=== PATIENT | female | born 1990 | race Caucasian/White ===

== ENCOUNTER 2017-10-13 12:54 | Emergency (ER) | payer MEDICAID ==
[~2017-10-13] VITALS: Ht 170.2 cm; Wt 69.3 kg
[2017-10-13] MEDS ORDERED: PROCHLORPERAZINE 5 MG/ML, 2ML ONE (13:39)
[2017-10-13] MEDS ORDERED: MORPHINE SULFATE 4 MG/ML, 1ML ONE (13:40)
[2017-10-13] MEDS ORDERED: DIPHENHYDRAMINE 50 MG/ML, 1ML ONE (13:40)
[2017-10-13 13:50] LABS: BASOPHILS # (AUTO) 0.02 x10^3/uL (0-0.1); BASOPHILS % (AUTO) 0 % (0-1); EOSINOPHILS # (AUTO) 0.02 x10^3/uL (0-0.4); EOSINOPHILS % (AUTO) 0 % (1-7); LYMPHOCYTES # (AUTO) 1.09 x10^3/uL (1-3.4); LYMPHOCYTES % (AUTO) 17 % (22-44); MD NO; MEAN CORPUSCULAR HEMOGLOBIN 29.1 pg (27.0-34.8); MEAN CORPUSCULAR HGB CONC 33.8 g/dL (32.4-35.8); MEAN CORPUSCULAR VOLUME 86.3 fL (80-100); MEAN PLATELET VOLUME 8.5 fL (7.4-10.4); MONOCYTES # (AUTO) 0.27 x10^3/uL (0.2-0.8); MONOCYTES % (AUTO) 4 % (2-9); NEUTROPHILS # (AUTO) 4.97 x10^3/uL (1.8-6.8); NEUTROPHILS % (AUTO) 78 % (42-75); PLATELET COUNT 257 x10^3/uL (130-400); RED BLOOD COUNT 5.02 x10^6/uL (3.82-5.3); RED CELL DISTRIBUTION WIDTH 13.3 % (9.6-15.2)
[2017-10-13] MEDS ORDERED: MORPHINE SULFATE 4 MG/ML, 1ML IVPush PRN (14:00)
[2017-10-13] MEDS ORDERED: DIPHENHYDRAMINE 50 MG/ML, 1ML IVPush ONE (14:00)
[2017-10-13] MEDS ORDERED: PROCHLORPERAZINE 5 MG/ML, 2ML IVPush ONE (14:00)
[2017-10-13] MEDS ORDERED: SODIUM CHLORIDE FLUSH 10ML SYR IVF ONE (14:00)
[2017-10-13] MEDS ORDERED: SODIUM CHLORIDE 0.9% 1,000ML IVBOLUS ONE (14:00)
[2017-10-13 14:01] LABS: ALANINE AMINOTRANSFERASE 21 U/L (12-78); ALBUMIN 3.9 g/dL (3.4-5.0); ANION GAP 8 mmol/L (5-15); CALCIUM 8.7 mg/dL (8.5-10.1); CHLORIDE 105 mmol/L (98-107)
[2017-10-13 14:06] LABS: ALKALINE PHOSPHATASE 59 U/L (45-117); BILIRUBIN,TOTAL 0.4 mg/dL (0.2-1.0); CREATININE 0.82 mg/dL (0.55-1.02); TOTAL PROTEIN 7.9 g/dL (6.4-8.2)
[2017-10-13 14:51] VITALS: BP 101/63
== END 2017-10-13 14:54 | disposition home or self-care (01) ==
LOC: ED 14:50
DX: R10.84 Generalized abdominal pain (principal); R11.2 Nausea with vomiting, unspecified; R19.7 Diarrhea, unspecified
CPT/HCPCS: 36415; 80053; 83690; 84703; 85025; 96361; 96374; 96375; 99284; J0780; J1200; J7030

== ENCOUNTER 2019-07-06 16:35 | Emergency (ER) | payer MEDICAID ==
[~2019-07-06] VITALS: Ht 170.2 cm; Wt 69.0 kg
--- NOTE | 2019-07-06 17:29 | NUR ---
PT HERE WITH C/O MIGRAINE, GENERALIZED PAIN THROUGHOUT. PT STATES NAUSEA, VOMITTING, AND ABDOMINAL PAIN. 9/10 PAIN, PHOTOPHOBIC. PT DENIES ANY TRAUMA. PT AAO X 4, NAD, ROOM AIR, CALL LIGHT WITHIN REACH. SIDERAIL X [address]
[2019-07-06] MEDS ORDERED: KETOROLAC 30 MG/1 ML IM ONE (17:30)
[2019-07-06] MEDS ORDERED: METOCLOPRAMIDE 5 MG/ML, 2ML IM ONE (17:30)
[2019-07-06] MEDS ORDERED: KETOROLAC 30 MG/1 ML ONE (17:35)
[2019-07-06] MEDS ORDERED: METOCLOPRAMIDE 5 MG/ML, 2ML ONE (17:35)
[2019-07-06 17:43] LABS: BASOPHILS # (AUTO) 0.09 x10^3/uL (0-0.1); BASOPHILS % (AUTO) 1 % (0-1); EOSINOPHILS # (AUTO) 0.14 x10^3/uL (0-0.4); EOSINOPHILS % (AUTO) 2 % (1-7); LYMPHOCYTES # (AUTO) 2.44 x10^3/uL (1-3.4); LYMPHOCYTES % (AUTO) 29 % (22-44); MD NO; MEAN CORPUSCULAR HEMOGLOBIN 29.3 pg (27.0-34.8); MEAN CORPUSCULAR HGB CONC 32.6 g/dL (32.4-35.8); MEAN CORPUSCULAR VOLUME 89.9 fL (80-100); MEAN PLATELET VOLUME 8.4 fL (7.4-10.4); MONOCYTES # (AUTO) 0.59 x10^3/uL (0.2-0.8); MONOCYTES % (AUTO) 7 % (2-9); NEUTROPHILS # (AUTO) 5.14 x10^3/uL (1.8-6.8); NEUTROPHILS % (AUTO) 61 % (42-75); PLATELET COUNT 313 x10^3/uL (130-400); RED BLOOD COUNT 4.69 x10^6/uL (3.82-5.3); RED CELL DISTRIBUTION WIDTH 13.3 % (9.6-15.2)
--- NOTE | 2019-07-06 17:47 | NUR ---
PT MEDICATED PER ORDERS. EDUCATED ON NEED FOR URINE SAMPLE.
[2019-07-06 17:55] LABS: ALANINE AMINOTRANSFERASE 22 U/L (12-78); ALBUMIN 3.7 g/dL (3.4-5.0); ANION GAP 5 mmol/L (5-15); CALCIUM 8.3 mg/dL (8.5-10.1); CHLORIDE 107 mmol/L (98-107); CREATININE 0.72 mg/dL (0.55-1.02)
[2019-07-06 18:00] LABS: ALKALINE PHOSPHATASE 50 U/L (45-117); BILIRUBIN,TOTAL 0.3 mg/dL (0.2-1.0); TOTAL PROTEIN 7.3 g/dL (6.4-8.2)
--- NOTE | 2019-07-06 18:24 | NUR ---
PT AMBULATORY TO RESTROOM WITH NO STAFF ASSISTANCE FOR URINE SAMPLE. UA LABELED AND SENT TO LAB.
[2019-07-06 18:35] LABS: MICROSCOPIC AUTO
[2019-07-06 18:37] LABS: CULTURE INDICATED? YES
[2019-07-06 18:40] VITALS: BP 108/74
--- NOTE | 2019-07-06 19:07 | NUR ---
DR. GALLEGOS AT BEDSIDE FOR DISCUSSION OF PLAN OF CARE.
--- NOTE | 2019-07-06 19:27 | NUR ---
Patient/Caregiver given discharge instructions and they have confirmed that they understand the instructions. Patient ambulatory with steady gait.
== END 2019-07-06 19:33 | disposition home or self-care (01) ==
LOC: ED 19:05
DX: R10.84 Generalized abdominal pain (principal); G43.909 Migraine, unspecified, not intractable, without status migrainosus; J45.909 Unspecified asthma, uncomplicated
CPT/HCPCS: 36415; 80053; 81001; 83690; 84703; 85025; 87086; 96372; 99283; J1885; J2765

== ENCOUNTER 2019-09-04 15:49 | Emergency (ER) | payer MEDICAID ==
[~2019-09-04] VITALS: Ht 170.2 cm; Wt 71.3 kg
[2019-09-04 16:09] VITALS: BP 112/79
--- NOTE | 2019-09-04 16:55 | NUR ---
TO ROOM FROM LOBBY. NAD.
[2019-09-04 17:08] LABS: BASOPHILS # (AUTO) 0.06 x10^3/uL (0-0.1); BASOPHILS % (AUTO) 1 % (0-1); EOSINOPHILS # (AUTO) 0.05 x10^3/uL (0-0.4); EOSINOPHILS % (AUTO) 1 % (1-7); LYMPHOCYTES # (AUTO) 1.82 x10^3/uL (1-3.4); LYMPHOCYTES % (AUTO) 23 % (22-44); MD NO; MEAN CORPUSCULAR HEMOGLOBIN 29.3 pg (27.0-34.8); MEAN CORPUSCULAR HGB CONC 32.7 g/dL (32.4-35.8); MEAN CORPUSCULAR VOLUME 89.4 fL (80-100); MEAN PLATELET VOLUME 8.2 fL (7.4-10.4); MONOCYTES # (AUTO) 0.43 x10^3/uL (0.2-0.8); MONOCYTES % (AUTO) 5 % (2-9); NEUTROPHILS % (AUTO) 71 % (42-75); PLATELET COUNT 332 x10^3/uL (130-400); RED BLOOD COUNT 4.92 x10^6/uL (3.82-5.3); RED CELL DISTRIBUTION WIDTH 13.1 % (9.6-15.2)
[2019-09-04 17:09] LABS: ALBUMIN 4.2 g/dL (3.4-5.0); ANION GAP 4 mmol/L (5-15); CALCIUM 9.1 mg/dL (8.5-10.1); CHLORIDE 108 mmol/L (98-107)
[2019-09-04 17:15] LABS: ALANINE AMINOTRANSFERASE 28 U/L (12-78); ALKALINE PHOSPHATASE 60 U/L (45-117); BILIRUBIN,TOTAL 0.4 mg/dL (0.2-1.0); CREATININE 0.69 mg/dL (0.55-1.02); TOTAL PROTEIN 8.5 g/dL (6.4-8.2); TROPONIN I < 0.015 ng/mL (0.000-0.045)
[2019-09-04 17:38] LABS: CULTURE INDICATED? NO; MICROSCOPIC INDICATED
[2019-09-04 17:39] LABS: HCG UR SG > 1.030 (1.003-1.030)
[2019-09-04] MEDS ORDERED: KETOROLAC 30 MG/1 ML ONE (17:44)
--- NOTE | 2019-09-04 17:48 | NUR ---
UA COLLECTED AND SENT TO LAB, PT MEDICATED PER OCT.
[2019-09-04] MEDS ORDERED: KETOROLAC 30 MG/1 ML IM ONE (18:00)
== END 2019-09-04 18:27 | disposition home or self-care (01) ==
LOC: ED 18:14
DX: G44.209 Tension-type headache, unspecified, not intractable (principal); R07.89 Other chest pain; N94.6 Dysmenorrhea, unspecified
CPT/HCPCS: 36415; 71046; 80053; 81001; 81025; 83690; 84484; 85025; 93005; 96372; 99284; J1885

== ENCOUNTER 2019-09-24 09:34 | Emergency (ER) | payer SELFPAY ==
[~2019-09-24] VITALS: Ht 170.2 cm; Wt 71.7 kg
[2019-09-24 09:41] VITALS: BP 114/77
--- NOTE | 2019-09-24 09:48 | NUR ---
PT GIVEN GOWN AND ASKED TO CHANGE
--- NOTE | 2019-09-24 10:03 | NUR ---
29 Y/O FEMALE PRESENTS TO ED WITH C/O "I HAVE CHEST PAIN AND IN MY STOMACH FOR THREE DAYS. I HAVEN'T SLEPT IN THREE DAYS. MY CP IS RIGHT IN THE CENTER. I'VE HAD GASTRITIS ABOUT THREE MONTHS AGO. I NEVER FOLLOWED UP. I'VE HAD NAUSEA AND DIARRHEA." ECG BEING PERFORMED AT THIS TIME. FRIEND BEDSIDE. PT PLACED ON CONT PULSE OX, NIBP, SAMPLE MOUNTER.
--- NOTE | 2019-09-24 10:20 | NUR ---
PIV ESTABLISHED. PT TOLERATED WITH NO COMPLICATIONS.
[2019-09-24] MEDS ORDERED: ONDANSETRON 2MG/ML, 2ML ONE (10:24)
[2019-09-24] MEDS ORDERED: FAMOTIDINE 20 MG/2 ML ONE (10:24)
[2019-09-24] MEDS ORDERED: MAALOX/HYOSCYAMINE/LIDOCAINE 45 ML BTL ONE (10:24)
[2019-09-24 10:27] LABS: BASOPHILS # (AUTO) 0.05 x10^3/uL (0-0.1); BASOPHILS % (AUTO) 1 % (0-1); EOSINOPHILS % (AUTO) 3 % (1-7); LYMPHOCYTES # (AUTO) 1.78 x10^3/uL (1-3.4); LYMPHOCYTES % (AUTO) 26 % (22-44); MD NO; MEAN CORPUSCULAR HEMOGLOBIN 29.7 pg (27.0-34.8); MEAN CORPUSCULAR HGB CONC 33.5 g/dL (32.4-35.8); MEAN CORPUSCULAR VOLUME 88.6 fL (80-100); MEAN PLATELET VOLUME 8.5 fL (7.4-10.4); MONOCYTES # (AUTO) 0.44 x10^3/uL (0.2-0.8); MONOCYTES % (AUTO) 6 % (2-9); NEUTROPHILS # (AUTO) 4.36 x10^3/uL (1.8-6.8); NEUTROPHILS % (AUTO) 64 % (42-75); PLATELET COUNT 280 x10^3/uL (130-400); RED CELL DISTRIBUTION WIDTH 13.2 % (9.6-15.2)
[2019-09-24 10:36] LABS: ALANINE AMINOTRANSFERASE 20 U/L (12-78); ALBUMIN 3.8 g/dL (3.4-5.0); ANION GAP 6 mmol/L (5-15); CALCIUM 8.7 mg/dL (8.5-10.1); CHLORIDE 105 mmol/L (98-107); CREATININE 0.85 mg/dL (0.55-1.02)
[2019-09-24 10:41] LABS: ALKALINE PHOSPHATASE 60 U/L (45-117); BILIRUBIN,TOTAL 0.3 mg/dL (0.2-1.0); TOTAL PROTEIN 8.1 g/dL (6.4-8.2)
[2019-09-24] MEDS ORDERED: FAMOTIDINE 20 MG/2 ML IV ONE (11:00)
[2019-09-24] MEDS ORDERED: ONDANSETRON 2MG/ML, 2ML IVPush ONE (11:00)
[2019-09-24] MEDS ORDERED: SODIUM CHLORIDE FLUSH 10ML SYR IVF ONE (11:00)
[2019-09-24] MEDS ORDERED: SODIUM CHLORIDE 0.9% 1,000ML IVBOLUS ONE (11:00)
[2019-09-24] MEDS ORDERED: MAALOX/HYOSCYAMINE/LIDOCAINE 45 ML BTL PO ONE (11:00)
--- NOTE | 2019-09-24 11:04 | NUR ---
PT AMBULATORY WITH STEADY GAIT TO BATHROOM FOR SAMPLE.
--- NOTE | 2019-09-24 11:07 | NUR ---
UA SENT TO LAB
[2019-09-24 11:25] LABS: MICROSCOPIC NOT IND
[2019-09-24 11:30] LABS: CULTURE INDICATED? NO
--- NOTE | 2019-09-24 12:06 | NUR ---
Patient/Caregiver given discharge instructions and they have confirmed that they understand the instructions. Patient ambulatory with steady gait. PT LEFT WITH ALL PERSONAL BELONGINGS.
== END 2019-09-24 12:07 | disposition home or self-care (01) ==
LOC: ED 11:50
DX: K21.0 Gastro-esophageal reflux disease with esophagitis (principal); R11.2 Nausea with vomiting, unspecified; R19.7 Diarrhea, unspecified
CPT/HCPCS: 36415; 71045; 80053; 81003; 83690; 84703; 85025; 93005; 96361; 96374; 96375; 99285; J2405; J3490; J7030

== ENCOUNTER 2019-10-02 16:43 | Emergency (ER) | payer MEDICAID, OTHER ==
[~2019-10-02] VITALS: Ht 172.7 cm; Wt 72.0 kg
[2019-10-02 18:33] VITALS: BP 123/78
--- NOTE | 2019-10-02 18:34 | NUR ---
Patient/Caregiver given discharge instructions and they have confirmed that they understand the instructions. Patient ambulatory with steady gait.
== END 2019-10-02 18:36 | disposition home or self-care (01) ==
LOC: ED 18:19
DX: J00 Acute nasopharyngitis [common cold] (principal); B34.9 Viral infection, unspecified; K21.9 Gastro-esophageal reflux disease without esophagitis; J45.909 Unspecified asthma, uncomplicated
CPT/HCPCS: 71045; 99283

== ENCOUNTER 2019-11-14 11:30 | Emergency (ER) | payer OTHER ==
[~2019-11-14] VITALS: Ht 170.2 cm; Wt 72.0 kg
[2019-11-14 11:48] VITALS: BP 115/69
--- NOTE | 2019-11-14 11:49 | NUR ---
FIRST CONTACT WITH PT. PT C/O FEVER, GENERALIZED BODY ACHES, SORE THROAT, TERRY. RT FLANK PAIN X9 DAYS. RENORIANA ERVIN TEST ME FOR COVID. PT'S AOX4. RESPS EVEN AND UNLABORED. BP/SPO2 MONITORS IN PLACE. CALL LIGHT WITHIN REACH. PA AT BEDSIDE TO EVALUATE.
--- NOTE | 2019-11-14 11:54 | NUR ---
PT MEDICATED PER EMAR. PT TOLERATED WELL.
--- NOTE | 2019-11-14 12:04 | NUR ---
XRAY DONE AT THIS TIME.
--- NOTE | 2019-11-14 12:40 | NUR ---
Patient given discharge instructions and they have confirmed that they understand the instructions. Patient ambulatory with steady gait.
== END 2019-11-14 12:41 | disposition home or self-care (01) ==
LOC: ED 12:18
DX: B34.9 Viral infection, unspecified (principal); J45.31 Mild persistent asthma with (acute) exacerbation; K21.9 Gastro-esophageal reflux disease without esophagitis
CPT/HCPCS: 71045; 99283; J7512

== ENCOUNTER 2019-11-30 18:57 | Emergency (ER) | payer OTHER ==
[~2019-11-30] VITALS: Ht 170.2 cm; Wt 71.6 kg
--- NOTE | 2019-11-30 20:23 | NUR ---
PT AMBULATORY WITH STEADY GATE TO ROOM
--- NOTE | 2019-11-30 20:37 | NUR ---
FIRST CONTACT WITH PT. PT REPORTS INTERMITTENT, SHARP, EPIGASTRIC PAIN THAT RADIATES TO CHEST X 0400 WHILE SLEEPING. +N/V. DENIES PRODUCTIVE COUGH/BLOOD IN EMESIS/FEVER. NO GI HX. BP/SPO2/ECG MONITORING IN PLACE. NSR ON MONITOR.
[2019-11-30] MEDS ORDERED: MAALOX/HYOSCYAMINE/LIDOCAINE 45 ML BTL ONE (21:26)
[2019-11-30] MEDS ORDERED: ONDANSETRON ODT 4 MG ONE (21:26)
[2019-11-30] MEDS ORDERED: ONDANSETRON ODT 4 MG PO ONE (21:30)
[2019-11-30] MEDS ORDERED: MAALOX/HYOSCYAMINE/LIDOCAINE 45 ML BTL PO ONE (21:30)
--- NOTE | 2019-11-30 21:31 | NUR ---
PT MEDICATED PER EMAR FOR PAIN/NAUSEA. UA COLLECTED AND SENT TO LAB
[2019-11-30 21:48] LABS: CULTURE INDICATED? YES; MICROSCOPIC INDICATED
[2019-11-30 22:01] LABS: BASOPHILS # (AUTO) 0.07 x10^3/uL (0-0.1); BASOPHILS % (AUTO) 1 % (0-1); EOSINOPHILS # (AUTO) 0.16 x10^3/uL (0-0.4); EOSINOPHILS % (AUTO) 1 % (1-7); LYMPHOCYTES # (AUTO) 2.43 x10^3/uL (1-3.4); LYMPHOCYTES % (AUTO) 20 % (22-44); MD NO; MEAN CORPUSCULAR HEMOGLOBIN 29.6 pg (27.0-34.8); MEAN CORPUSCULAR HGB CONC 33.2 g/dL (32.4-35.8); MEAN CORPUSCULAR VOLUME 88.9 fL (80-100); MEAN PLATELET VOLUME 8.5 fL (7.4-10.4); MONOCYTES # (AUTO) 0.75 x10^3/uL (0.2-0.8); MONOCYTES % (AUTO) 6 % (2-9); NEUTROPHILS # (AUTO) 8.69 x10^3/uL (1.8-6.8); NEUTROPHILS % (AUTO) 72 % (42-75); PLATELET COUNT 282 x10^3/uL (130-400); RED BLOOD COUNT 4.59 x10^6/uL (3.82-5.3); RED CELL DISTRIBUTION WIDTH 12.8 % (9.6-15.2)
--- NOTE | 2019-11-30 22:08 | NUR ---
PT REPORTS LITTLE IMPROVEMENT IN PAIN. PT SITTING UP IN [place], EASILY DISTRACTABLE BY CELL PHONE
[2019-11-30 22:12] LABS: ALANINE AMINOTRANSFERASE 30 U/L (12-78); ALBUMIN 3.7 g/dL (3.4-5.0); ANION GAP 8 mmol/L (5-15); CALCIUM 8.8 mg/dL (8.5-10.1); CHLORIDE 106 mmol/L (98-107); CREATININE 0.76 mg/dL (0.55-1.02)
[2019-11-30 22:17] LABS: ALKALINE PHOSPHATASE 55 U/L (45-117); BILIRUBIN,TOTAL 0.4 mg/dL (0.2-1.0); TOTAL PROTEIN 7.6 g/dL (6.4-8.2)
[2019-11-30 22:58] VITALS: BP 116/76
--- NOTE | 2019-12-01 00:06 | NUR ---
DC EDUCATION PROVIDED, PT DEMONSTRATES UNDERSTANDING. PT AMBULATED STEADILY TO DC WITH RN
== END 2019-12-01 00:08 | disposition home or self-care (01) ==
LOC: ED 21:11
DX: K21.0 Gastro-esophageal reflux disease with esophagitis (principal); K29.00 Acute gastritis without bleeding; R07.89 Other chest pain; J45.909 Unspecified asthma, uncomplicated
CPT/HCPCS: 36415; 71045; 80053; 81001; 83690; 84703; 85025; 87086; 93005; 99285; Q0162

== ENCOUNTER 2020-01-03 08:26 | Emergency (ER) | payer OTHER ==
[~2020-01-03] VITALS: Ht 165.1 cm; Wt 60.0 kg
[2020-01-03] MEDS ORDERED: METOCLOPRAMIDE 5 MG/ML, 2ML ONE (08:50)
[2020-01-03] MEDS ORDERED: DIPHENHYDRAMINE 50 MG/ML, 1ML ONE (08:50)
[2020-01-03] MEDS ORDERED: ONDANSETRON 2MG/ML, 2ML ONE (08:50)
[2020-01-03] MEDS ORDERED: PLEASE ENTER HEIGHT AND WEIGHT MC SCH (09:00)
[2020-01-03] MEDS ORDERED: SODIUM CHLORIDE 0.9% 1,000ML IVBOLUS ONE (09:00)
[2020-01-03] MEDS ORDERED: DIPHENHYDRAMINE 50 MG/ML, 1ML IVPush ONE (09:00)
[2020-01-03] MEDS ORDERED: METOCLOPRAMIDE 5 MG/ML, 2ML IVPush ONE (09:00)
[2020-01-03] MEDS ORDERED: ONDANSETRON 2MG/ML, 2ML IVPush ONE (09:00)
--- NOTE | 2020-01-03 09:25 | NUR ---
MEDICATED ORDERED, RESTING IN BED
--- NOTE | 2020-01-03 09:55 | NUR ---
REPORT TO TEJAS MCCURDY
--- NOTE | 2020-01-03 09:55 | NUR ---
Handoff report received from KAZ Arce
[2020-01-03 10:33] VITALS: BP 107/60
== END 2020-01-03 10:42 | disposition home or self-care (01) ==
LOC: ED 09:06
DX: G44.229 Chronic tension-type headache, not intractable (principal); H53.149 Visual discomfort, unspecified; K21.9 Gastro-esophageal reflux disease without esophagitis
CPT/HCPCS: 96361; 96374; 96375; 99284; J1200; J2405; J2765; J7030

== ENCOUNTER 2020-01-22 15:01 | Emergency (ER) | payer OTHER ==
[~2020-01-22] VITALS: Ht 170.2 cm; Wt 72.3 kg
[2020-01-22] MEDS ORDERED: LIDOCAINE 2%, 20ML SQ ONE (15:30)
[2020-01-22] MEDS ORDERED: LIDOCAINE 2%, 10ML SQ ONE (16:00)
[2020-01-22] MEDS ORDERED: LIDOCAINE-MPF 2% ,5ML SQ ONE (16:00)
--- NOTE | 2020-01-22 16:55 | NUR ---
[facility]/ A STEADY GAIT AT THIS TIME.
[2020-01-22] MEDS ORDERED: LIDOCAINE-MPF 1%, 5ML ONE (16:56)
[2020-01-22 17:02] VITALS: BP 119/76
--- NOTE | 2020-01-22 17:04 | NUR ---
PT PRESENTS W/ C/O PAIN IN SACRUM W/ BUMP. PT REPORTS HX OF PILONDYAL CYST. VSS, NADN. PT RESTING ON [place] W/ CALL LIGHT IN REACH. PT SET UP FOR I&D.
--- NOTE | 2020-01-22 18:00 | NUR ---
DONALD PRECIADO IN ROOM FOR I&D.
[2020-01-22] MEDS ORDERED: CEPHALEXIN 500 MG CAPSULE ONE (18:15)
[2020-01-22] MEDS ORDERED: SULFAMETH./TRIMETHOPRIM DS 800MG/160MG TABLET ONE (18:15)
[2020-01-22] MEDS ORDERED: SULFAMETH./TRIMETHOPRIM DS 800MG/160MG TABLET PO ONE (18:30)
[2020-01-22] MEDS ORDERED: CEPHALEXIN 500 MG CAPSULE PO ONE (18:30)
== END 2020-01-22 18:57 | disposition home or self-care (01) ==
LOC: ED 18:09
DX: L05.01 Pilonidal cyst with abscess (principal); M54.5 Low back pain
CPT/HCPCS: 10080; 99283

== ENCOUNTER 2020-01-24 12:35 | Emergency (ER) | payer OTHER ==
[~2020-01-24] VITALS: Ht 170.2 cm; Wt 79.3 kg
[2020-01-24 12:39] VITALS: BP 105/69
--- NOTE | 2020-01-24 12:51 | NUR ---
PATIENT WAS HERE ON SATURDAY FOR WOUND PACKING, AND SHE IS HERE FOR RECHECK. THE WOUND IS PACKED AND APPEARS NOT RED, AND NOT PINK BUT DOES STILL HURT ALOT.
[2020-01-24] MEDS ORDERED: CEPH-368 PO (12:57)
[2020-01-24] MEDS ORDERED: SULF1TAB23 PO (12:57)
--- NOTE | 2020-01-24 13:15 | NUR ---
heat pack left on for five minutes to help pain and removal, and then removing packing.
== END 2020-01-24 13:40 | disposition home or self-care (01) ==
LOC: ED 13:39
DX: L02.31 Cutaneous abscess of buttock (principal); J45.909 Unspecified asthma, uncomplicated; K21.9 Gastro-esophageal reflux disease without esophagitis
CPT/HCPCS: 99281

== ENCOUNTER 2020-03-03 06:45 | Emergency (ER) | payer OTHER ==
[~2020-03-03] VITALS: Ht 170.2 cm; Wt 72.8 kg
[~2020-03-03 06:45] MED LIST: CEPH-368 PO; SULF1TAB23 PO
--- NOTE | 2020-03-03 07:10 | NUR ---
PATIENT RESTING IN BED COMFORTABLY, TALKING ON PHONE TO FRIEND. VITAL SIGNS WDL. [employer] COMPUTER IN ROOM.
--- NOTE | 2020-03-03 07:20 | NUR ---
TASK RN: PT TO ROOM 18 W/ C/O UPPER MID BUTTOCKS PAIN. PT STATES SHE HAS HX ABSCESS STARTED 4 YRS AGO.. DRAINED 1 YR AGO PER PT AND PAIN STARTED AGAIN ABOUT 4 WEEKS AGO. SEEMA VELASQUEZ AT BEDSIDE W/ THIS RN WITNESS TO ASSESS ABSCESS. NO REDNESS/HEAT NOTED.
[2020-03-03] MEDS ORDERED: ONDANSETRON ODT 4 MG PO ONE (07:30)
[2020-03-03] MEDS ORDERED: KETOROLAC 30 MG/1 ML IM ONE (07:30)
[2020-03-03] MEDS ORDERED: KETOROLAC 30 MG/1 ML ONE (08:08)
[2020-03-03] MEDS ORDERED: ONDANSETRON ODT 4 MG ONE (08:08)
--- NOTE | 2020-03-03 08:12 | NUR ---
PATIENT RESTING IN BED, VITAL SIGNS WDL. 4 MG ODT ZOFRAN AND 30 MG IM TORADOL ADMINISTERED. NO FURTHER NEEDS AT THIS TIME.
[2020-03-03 08:52] VITALS: BP 117/74
--- NOTE | 2020-03-03 09:30 | NUR ---
Patient given discharge instructions IN [place] and they have confirmed that they understand the instructions. Patient ambulatory with steady gait.
== END 2020-03-03 09:32 | disposition home or self-care (01) ==
LOC: ED 08:24
DX: G43.909 Migraine, unspecified, not intractable, without status migrainosus (principal); M54.5 Low back pain; R11.0 Nausea; J45.909 Unspecified asthma, uncomplicated; K21.9 Gastro-esophageal reflux disease without esophagitis
CPT/HCPCS: 96372; 99283; J1885; Q0162

== ENCOUNTER 2020-04-06 09:34 | Emergency (ER) | payer BC, OTHER ==
[~2020-04-06] VITALS: Ht 170.2 cm; Wt 71.9 kg
[2020-04-06 09:38] VITALS: BP 125/98
--- NOTE | 2020-04-06 10:14 | NUR ---
[facility] UTILITY INSPECTOR UTILIZED FOR CONSULTATION.
--- NOTE | 2020-04-06 10:20 | NUR ---
is at the bedside with jose for consult/assessment
[2020-04-06] MEDS ORDERED: METOCLOPRAMIDE 10MG TABLET ONE (10:43)
[2020-04-06] MEDS ORDERED: KETOROLAC 60 MG/2 ML ONE (10:43)
[2020-04-06] MEDS ORDERED: DIPHENHYDRAMINE 25 MG CAPSULE ONE (10:44)
[2020-04-06] MEDS ORDERED: MAALOX/HYOSCYAMINE/LIDOCAINE 45 ML BTL ONE (10:45)
[2020-04-06] MEDS ORDERED: MAALOX/HYOSCYAMINE/LIDOCAINE 45 ML BTL PO ONE (11:00)
[2020-04-06] MEDS ORDERED: DIPHENHYDRAMINE 25 MG CAPSULE PO ONE (11:00)
[2020-04-06] MEDS ORDERED: METOCLOPRAMIDE 10MG TABLET PO ONE (11:00)
[2020-04-06] MEDS ORDERED: KETOROLAC 60 MG/2 ML IM ONE (11:00)
--- NOTE | 2020-04-06 11:11 | NUR ---
pt medicated s ordered. i will allow meds to absorb and recheck in approx 0.5 hrs
== END 2020-04-06 12:02 | disposition home or self-care (01) ==
LOC: ED 09:56
DX: G43.709 Chronic migraine without aura, not intractable, without status migrainosus (principal); G89.29 Other chronic pain; R10.13 Epigastric pain; R11.2 Nausea with vomiting, unspecified; R07.89 Other chest pain; R06.02 Shortness of breath
CPT/HCPCS: 93005; 96372; 99284; J1885; Q0163

== ENCOUNTER 2020-04-29 07:36 | Emergency (ER) | payer BC, MEDICAID ==
[~2020-04-29] VITALS: Ht 170.2 cm; Wt 72.2 kg
--- NOTE | 2020-04-29 08:39 | NUR ---
INSTRUCTIONAL INTERVENTIONIST: PT TO ROOM FROM LOBBY
--- NOTE | 2020-04-29 08:49 | NUR ---
ERP IN TO EVAL PT, AWAITING ORDERS AT THIS TIME
[2020-04-29] MEDS ORDERED: FAMOTIDINE 20 MG/2 ML ONE (08:55)
[2020-04-29] MEDS ORDERED: MAALOX/HYOSCYAMINE/LIDOCAINE 45 ML BTL ONE (08:55)
[2020-04-29] MEDS ORDERED: ONDANSETRON 2MG/ML, 2ML ONE (08:55)
[2020-04-29] MEDS ORDERED: ONDANSETRON 2MG/ML, 2ML IVPush ONE ×2 (09:00→10:00)
[2020-04-29] MEDS ORDERED: FAMOTIDINE 20 MG/2 ML IV ONE (09:00)
[2020-04-29] MEDS ORDERED: MAALOX/HYOSCYAMINE/LIDOCAINE 45 ML BTL PO ONE (09:00)
--- NOTE | 2020-04-29 09:07 | NUR ---
ORDERS RECIEVED, PIV INITIATED, PT MEDICATED PER OCT. UA COLLECTED AND SENT PT AMBULATED TO BR WITH STEADY GAIT. PT STATES PAIN IS EPIGASTRIC PT RATES PAIN 10/10, DENIES SOB. PT WITH BP, CONT PULSE OX
[2020-04-29 09:09] LABS: BASOPHILS # (AUTO) 0.03 x10^3/uL (0-0.1); BASOPHILS % (AUTO) 0 % (0-1); EOSINOPHILS # (AUTO) 0.14 x10^3/uL (0-0.4); EOSINOPHILS % (AUTO) 1 % (1-7); LYMPHOCYTES # (AUTO) 1.17 x10^3/uL (1-3.4); LYMPHOCYTES % (AUTO) 12 % (22-44); MD NO; MEAN CORPUSCULAR HEMOGLOBIN 28.2 pg (27.0-34.8); MEAN CORPUSCULAR HGB CONC 32.1 g/dL (32.4-35.8); MEAN CORPUSCULAR VOLUME 87.9 fL (80-100); MEAN PLATELET VOLUME 8.7 fL (7.4-10.4); MONOCYTES # (AUTO) 0.75 x10^3/uL (0.2-0.8); MONOCYTES % (AUTO) 8 % (2-9); NEUTROPHILS # (AUTO) 7.77 x10^3/uL (1.8-6.8); NEUTROPHILS % (AUTO) 79 % (42-75); PLATELET COUNT 276 x10^3/uL (130-400); RED BLOOD COUNT 5.01 x10^6/uL (3.82-5.3); RED CELL DISTRIBUTION WIDTH 13.1 % (9.6-15.2)
[2020-04-29 09:15] LABS: MICROSCOPIC INDICATED
[2020-04-29 09:21] LABS: ALBUMIN 4.1 g/dL (3.4-5.0); ANION GAP 7 mmol/L (5-15); CHLORIDE 107 mmol/L (98-107)
[2020-04-29 09:27] LABS: ALANINE AMINOTRANSFERASE 24 U/L (12-78); ALKALINE PHOSPHATASE 59 U/L (45-117); BILIRUBIN,TOTAL 0.5 mg/dL (0.2-1.0); CREATININE 0.72 mg/dL (0.55-1.02); TOTAL PROTEIN 8.2 g/dL (6.4-8.2)
--- NOTE | 2020-04-29 09:54 | NUR ---
PT REQUESTING ADDITIONAL PAIN MEDICATIONS, WILL MEDICATE PER OCT, US COMPLETED. VSS
[2020-04-29] MEDS ORDERED: MORPHINE SULFATE 4 MG/ML, 1ML ONE (09:56)
[2020-04-29] MEDS ORDERED: MORPHINE SULFATE 4 MG/ML, 1ML IVPush PRN (10:00)
[2020-04-29 10:08] VITALS: BP 109/65
== END 2020-04-29 11:29 | disposition home or self-care (01) ==
LOC: ED 08:51
DX: K29.00 Acute gastritis without bleeding (principal); N30.00 Acute cystitis without hematuria; K21.9 Gastro-esophageal reflux disease without esophagitis; J45.909 Unspecified asthma, uncomplicated; G43.909 Migraine, unspecified, not intractable, without status migrainosus; R11.0 Nausea
CPT/HCPCS: 36415; 71045; 76700; 80053; 81001; 83690; 84703; 85025; 87086; 96374; 96375; 99285; J2270; J2405; J3490

== ENCOUNTER 2020-05-02 20:15 | Emergency (ER) | payer MEDICAID ==
[~2020-05-02] VITALS: Ht 170.2 cm; Wt 71.9 kg
--- NOTE | 2020-05-02 20:58 | NUR ---
INTERPRETUR SERVICES IN USE. ALL QUESTIONS ANSWERED.
[2020-05-02] MEDS ORDERED: KETOROLAC 60 MG/2 ML ONE (21:17)
--- NOTE | 2020-05-02 21:21 | NUR ---
PT TO IMAGING.
--- NOTE | 2020-05-02 21:24 | NUR ---
THIS PT STATES SHE TRIPPED ON HER STAIRS LEADING UP TO HER APARTMENT AND FELL. SHE STATES SHE DID NOT FEEL DIZZY OR FAINT PRIOR TO FALL. HER PRIMARY CONCERN IS HER LEFT ANKLE SWELLING AND PAIN. THIS RN HAS NOT SEEN PT AMBULATE. RODRIGO, PT ON PHONE CONVERSING, CONNECTED TO BP AND O2 MONITORS UPON ARRIVAL TO ROOM. CALL SKYLER IN REACH.
[2020-05-02] MEDS ORDERED: KETOROLAC 60 MG/2 ML IM ONE (21:30)
[2020-05-02 23:01] VITALS: BP 103/70
--- NOTE | 2020-05-02 23:02 | NUR ---
INTERPRETUR SERVICES IN USE. PT UPDATDE ON POC, ALL QUESTIONS ANSWERED. PT ON PHONE,
--- NOTE | 2020-05-02 23:09 | NUR ---
CT CALLED TO INQUIRE ABOUT IMAGING READ.
--- NOTE | 2020-05-03 00:46 | NUR ---
Patient/Caregiver given discharge instructions and they have confirmed that they understand the instructions. Patient ambulatory with steady gait.
== END 2020-05-03 00:47 | disposition home or self-care (01) ==
LOC: ED 23:44
DX: S93.432A Sprain of tibiofibular ligament of left ankle, initial encounter (principal); M54.5 Low back pain; R93.6 Abnormal findings on diagnostic imaging of limbs; J45.909 Unspecified asthma, uncomplicated; G43.909 Migraine, unspecified, not intractable, without status migrainosus; K21.9 Gastro-esophageal reflux disease without esophagitis; W18.30XA Fall on same level, unspecified, initial encounter; Y93.89 Activity, other specified; Y92.009 Unspecified place in unspecified non-institutional (private) residence as the place of occurrence of the external cause; Y99.8 Other external cause status
CPT/HCPCS: 72110; 73564; 73610; 96372; 99284; J1885

== ENCOUNTER 2020-07-03 18:45 | Emergency (ER) | payer MEDICAID ==
[~2020-07-03] VITALS: Ht 170.2 cm; Wt 72.8 kg
[2020-07-03 18:49] VITALS: BP 121/71
--- NOTE | 2020-07-03 19:20 | NUR ---
PT CALLED FOR ROOM. NA X 1. PT NOT IN LOBBY
--- NOTE | 2020-07-03 19:32 | NUR ---
CALLED FOR ROOM 1932. NA PT NOT IN LOBBY X 2
--- NOTE | 2020-07-03 19:49 | NUR ---
PT NOT IN LOBBY X 3
== END 2020-07-03 19:51 | disposition left against medical advice (07) ==
LOC: ED 19:10
DX: R11.0 Nausea (principal); R51.9 Headache, unspecified; Z53.21 Procedure and treatment not carried out due to patient leaving prior to being seen by health care provider

== ENCOUNTER 2020-08-22 11:42 | Emergency (ER) | payer MEDICAID ==
[~2020-08-22] VITALS: Ht 170.2 cm; Wt 71.0 kg
--- NOTE | 2020-08-22 12:51 | NUR ---
PT CAME IN CO OF EPIGASTRIC PAIN, TERRY, AND SOB THAT STARTED THIS MORNING. PT HAS HX OF GASTRITIS. PT RESTING IN [place] CONNECTED TO ALL MONITORING EQUIPMENT. EKG COMPLETE. AWAITING PROVIDER ORDERS AT THIS TIME
[2020-08-22] MEDS ORDERED: DIPHENHYDRAMINE 50 MG/ML, 1ML IVPush ONE (13:30)
[2020-08-22] MEDS ORDERED: SODIUM CHLORIDE 0.9% 1,000ML IVBOLUS ONE (13:30)
[2020-08-22] MEDS ORDERED: MAALOX/HYOSCYAMINE/LIDOCAINE 45 ML BTL PO ONE (13:30)
[2020-08-22] MEDS ORDERED: SODIUM CHLORIDE FLUSH 10ML SYR IVF ONE (13:30)
[2020-08-22] MEDS ORDERED: KETOROLAC 30 MG/1 ML IVPush ONE (13:30)
[2020-08-22] MEDS ORDERED: METOCLOPRAMIDE 5 MG/ML, 2ML IVPush ONE (13:30)
[2020-08-22 14:09] LABS: BASOPHILS % (AUTO) 1 % (0-1); EOSINOPHILS % (AUTO) 1 % (1-7); LYMPHOCYTES % (AUTO) 26 % (22-44); MEAN CORPUSCULAR HEMOGLOBIN 29.3 pg (27.0-34.8); MEAN CORPUSCULAR HGB CONC 33.7 g/dL (32.4-35.8); MEAN PLATELET VOLUME 9.3 fL (7.4-10.4); MONOCYTES % (AUTO) 6 % (2-9); NEUTROPHILS % (AUTO) 66 % (42-75); PLATELET COUNT 254 x10^3/uL (130-400); RED BLOOD COUNT 4.81 x10^6/uL (3.82-5.3); RED CELL DISTRIBUTION WIDTH 13.2 % (9.6-15.2)
[2020-08-22] MEDS ORDERED: METOCLOPRAMIDE 5 MG/ML, 2ML ONE (14:13)
[2020-08-22] MEDS ORDERED: KETOROLAC 30 MG/1 ML ONE (14:13)
[2020-08-22] MEDS ORDERED: DIPHENHYDRAMINE 50 MG/ML, 1ML ONE (14:13)
[2020-08-22] MEDS ORDERED: MAALOX/HYOSCYAMINE/LIDOCAINE 45 ML BTL ONE (14:13)
[2020-08-22 14:15] LABS: MD NO
[2020-08-22 14:19] LABS: ALANINE AMINOTRANSFERASE 20 U/L (12-78); ALBUMIN 3.8 g/dL (3.4-5.0); ANION GAP 3 mmol/L (5-15); CALCIUM 8.8 mg/dL (8.5-10.1); CHLORIDE 108 mmol/L (98-107); CREATININE 0.69 mg/dL (0.55-1.02)
[2020-08-22 14:23] LABS: ALKALINE PHOSPHATASE 58 U/L (45-117); BILIRUBIN,TOTAL 0.5 mg/dL (0.2-1.0); TOTAL PROTEIN 7.5 g/dL (6.4-8.2)
[2020-08-22 15:12] VITALS: BP 124/74
== END 2020-08-22 15:14 | disposition home or self-care (01) ==
LOC: ED 13:49
DX: K21.00 Gastro-esophageal reflux disease with esophagitis, without bleeding (principal); R07.89 Other chest pain; R11.2 Nausea with vomiting, unspecified; G43.909 Migraine, unspecified, not intractable, without status migrainosus; J45.909 Unspecified asthma, uncomplicated
CPT/HCPCS: 36415; 80053; 83690; 84703; 85025; 93005; 96361; 96374; 96375; 99284; J1200; J1885; J2765; J7030